=== PATIENT | female | born 1985 | race American Indian/Alaskan Native ===

== ENCOUNTER 2018-04-14 23:37 | Outpatient (CLI) | payer MEDICAID, OTHER ==
[2018-04-15] MEDS ORDERED: LACTATED RINGERS 1,000 ML IV ONE (00:22)
[2018-04-15] MEDS ORDERED: TYLENOL PO ONE (00:23)
[2018-04-15 00:42] VITALS: BP 127/83
[2018-04-15 00:53] LABS: Bacteria,Urine 1+ /HPF (Negative); Bilirubin,Urine NEG (Negative); Blood,Urine SM (Negative); Color,Urine Yellow (Yellow); Protein,Urine <15 mg/dL mg/dL (Negative); Urobilinogen,Urine < 2.0 mg/dL (<2.0)
[2018-04-15 01:13] LABS: Amphetamine Screen,Urine PRESUMPTIVE NEGATIVE; Benzodiazepines Screen,Urine PRESUMPTIVE NEGATIVE; Cannabinoid Screen,Urine PRESUMPTIVE NEGATIVE; Cocaine Screen,Urine PRESUMPTIVE NEGATIVE; Methadone Screen,Urine PRESUMPTIVE NEGATIVE; Opiate Screen,Urine PRESUMPTIVE NEGATIVE
--- NOTE | 2018-04-15 02:48 | Ultrasound Report ---
FINAL REPORT PROCEDURE: US OB > = 14 WEEKS FETUS TECHNIQUE: Real-time transabdominal sonography of the uterus, placenta, amniotic fluid, adnexa, and fetus was performed with image documentation. Measurements were obtained to determine age/size. M-mode Doppler was used to document heartbeat. CPT 28329 HISTORY: s/p fall no care COMPARISON: No prior studies are available for comparison. FINDINGS: ADDITIONAL GESTATION: None. GENERAL: IUP: Single living intrauterine . Position: Cephalic Placental position: Anterior, without previa. Amniotic fluid volume: Normal. MATERNAL: Uterus: Within normal limits. Cervical length: 4.6 cm. Internal Os: Closed. FETUS: Heart rate and rhythm: 135 beats per minute anatomic survey: There is limited evaluation of the skull and spine due to position. Anatomic survey is otherwise unremarkable. MEASUREMENTS: BPD: 7.9 centimeters correspond at 31 weeks and 6 days HC: 30.8 centimeters correspond at 34 weeks and 2 days AC: 31.3 centimeters correspond at 35 weeks and 1 day FL: 6.7 centimeters corresponding to 34 weeks and 4 days Mean Gestational Age (composite criteria): 34 weeks Ratio biometry: Normal. Estimated Weight: 2464 grams. Interval growth: Appropriate. Estimated Due Date (earliest scan): 05/27/2018 IMPRESSION: Single intrauterine gestation at 34 weeks. Estimated due date: 05/27/2018. There is limited evaluation of the skull and spine due to position. Anatomic survey is otherwise unremarkable. Normal amniotic fluid index. Placenta is anterior and grade 1 without previa.
--- NOTE | 2018-04-15 02:51 | Ultrasound Report ---
FINAL REPORT PROCEDURE: US OB BPP TECHNIQUE: Real-time transabdominal sonography of the uterus, placenta, amniotic fluid, adnexa, and fetus was performed with image documentation. Measurements were obtained to determine age/size. M-mode Doppler was used to document heartbeat. CPT 99265 HISTORY: s/p fall no care COMPARISON: No prior studies are available for comparison. FINDINGS: ADDITIONAL GESTATION: None. GENERAL: IUP: Single living intrauterine . Position: Cephalic Placental position: Anterior, without previa. Amniotic fluid volume: Normal. MATERNAL: Uterus: Within normal limits. Cervical length: 4.6 cm. Internal Os: Closed. FETUS: Heart rate and rhythm: 135 beats per minute anatomic survey: There is limited evaluation of the skull and spine due to position. Anatomic survey is otherwise unremarkable. THE BIOPHYSICAL PROFILE: BREATHING MOVEMENTS: 2. MOVEMENTS: 2. POSTERIOR AND TONE: 2. QUALITATIVE AMNIOTIC FLUID VOLUME: 2. TOTAL SCORE: 8/8. MEASUREMENTS: BPD: 7.9 centimeters correspond at 31 weeks and 6 days HC: 30.8 centimeters correspond at 34 weeks and 2 days AC: 31.3 centimeters correspond at 35 weeks and 1 day FL: 6.7 centimeters corresponding to 34 weeks and 4 days Mean Gestational Age (composite criteria): 34 weeks Ratio biometry: Normal. Estimated Weight: 2464 grams. Interval growth: Appropriate. Estimated Due Date (earliest scan): 05/27/2018 IMPRESSION: Single intrauterine gestation at 34 weeks. Estimated due date: 05/27/2018. There is limited evaluation of the skull and spine due to position. Anatomic survey is otherwise unremarkable. Normal amniotic fluid index. Placenta is anterior and grade 1 without previa. NORMAL BIOPHYSICAL PROFILE.
== END 2018-04-15 02:58 | disposition home or self-care (01) ==
LOC: TRG 23:37
PROVIDERS: ATTEND Obstetrics & Gynecology
DX: O9A.213 Injury, poisoning and certain other consequences of external causes complicating pregnancy, third trimester (principal); O99.333 Smoking (tobacco) complicating pregnancy, third trimester; W19.XXXA Unspecified fall, initial encounter; W22.8XXA Striking against or struck by other objects, initial encounter; Y93.89 Activity, other specified; Y92.89 Other specified places as the place of occurrence of the external cause; Y99.8 Other external cause status; Z3A.34 34 weeks gestation of pregnancy
CPT/HCPCS: 59025; 76805; 76819; 80307; 81001; 96360; J7120

== ENCOUNTER 2018-04-15 03:05 | Emergency (ER) | payer SELFPAY ==
[2018-04-15 03:14] VITALS: BP 144/74
[2018-04-15] MEDS ORDERED: TRIMOX PO ONE (03:29)
[2018-04-15] MEDS ORDERED: TYLENOL PO ONE (03:29)
--- NOTE | 2018-04-15 03:37 | Emergency Department Report ---
ED ENT HPI - General Chief complaint: Dental/Oral Stated complaint: TOOTHACHE Time Seen by Provider: 04/15/18 03:29 Source: patient Mode of arrival: Wheelchair Limitations: No Limitations - History of Present Illness Initial comments: pt is a 33 y/o aaf with hx of dental carries for past 2 yrs who presents for dental pain described as 5/10 aching pt is exacerbated by hot and cold stimuli, pt has not attempted otc pain reliever, pt has not seen dentist requesting referral to same. There is no facial or gum swelling no fever no chills no throat or ear pain MD complaint: tooth pain Onset/Timin -: days(s) Location: tooth # (27) Severity: moderate Severity scale (0 -10): 5 Quality: aching Consistency: constant Improves with: other (nothing tried ) Worsens with: eating, other (hot and cold stimuli ) Context- Dental: history of dental caries, poor dental care Associated Symptoms: toothache - Related Data Previous Rx's Medication Instructions Recorded Last Taken Type Acetaminophen [Tylenol Extra 1,000 mg PO TID PRN #30 tablet 04/15/18 Unknown Rx Strength] Amoxicillin 500 mg PO TID 10 Days #30 capsule 04/15/18 Unknown Rx Chlorhexidine Mouthwash [Peridex] 15 ml MM BID #1 bottle 04/15/18 Unknown Rx Allergies Allergy/AdvReac Type Severity Reaction Status Date / Time No Known Allergies Allergy Verified 04/15/18 00:22 ED Dental HPI - General Chief complaint: Dental/Oral Stated complaint: TOOTHACHE Time Seen by Provider: 04/15/18 03:29 Source: patient Mode of arrival: Wheelchair Limitations: No Limitations - Related Data Previous Rx's Medication Instructions Recorded Last Taken Type Acetaminophen [Tylenol Extra 1,000 mg PO TID PRN #30 tablet 04/15/18 Unknown Rx Strength] Amoxicillin 500 mg PO TID 10 Days #30 capsule 04/15/18 Unknown Rx Chlorhexidine Mouthwash [Peridex] 15 ml MM BID #1 bottle 04/15/18 Unknown Rx Allergies Allergy/AdvReac Type Severity Reaction Status Date / Time No Known Allergies Allergy Verified 04/15/18 00:22 ED Review of Systems ROS: Stated complaint: TOOTHACHE Other details as noted in HPI Constitutional: denies: chills, fever Eyes: denies: eye pain, eye discharge, vision change ENT: dental pain Respiratory: denies: cough, shortness of breath, wheezing Cardiovascular: denies: chest pain, palpitations Endocrine: no symptoms reported Gastrointestinal: denies: abdominal pain, nausea, diarrhea Genitourinary: denies: urgency, dysuria, discharge Musculoskeletal: denies: back pain, joint swelling, arthralgia Skin: denies: rash, lesions Neurological: denies: headache, weakness, paresthesias Psychiatric: denies: anxiety, depression Hematological/Lymphatic: denies: easy bleeding, easy bruising ED Past Medical Hx - Past Medical History Previous Medical History?: No Hx Hypertension: No Hx Diabetes: No Hx Deep Vein Thrombosis: No Hx Renal Disease: No Hx Sickle Cell Disease: No Hx Seizures: No Hx Asthma: No Hx HIV: No - Surgical History Past Surgical History?: No - Social History Smoking Status: Current Every Day Smoker Substance Use Type: None - Medications Home Medications: Home Medications Medication Instructions Recorded Confirmed Last Taken Type Acetaminophen [Tylenol Extra 1,000 mg PO TID PRN #30 tablet 04/15/18 Unknown Rx Strength] Amoxicillin 500 mg PO TID 10 Days #30 capsule 04/15/18 Unknown Rx Chlorhexidine Mouthwash [Peridex] 15 ml MM BID #1 bottle 04/15/18 Unknown Rx ED Physical Exam - General Limitations: No Limitations General appearance: alert, in no apparent distress - Head Head exam: Present: atraumatic, normocephalic - Eye Eye exam: Present: normal appearance, PERRL, EOMI Pupils: Present: normal accommodation - ENT ENT exam: Present: normal orophraynx, mucous membranes moist, TM's normal bilaterally, normal external ear exam - Expanded ENT Exam Expanded Ear exam: Present: normal external inspection Mouth exam: Present: tongue normal. Absent: trismus Teeth exam: Present: normal inspection, dental caries, dental tenderness # (28 mild gum erythema no focal abscess). Absent: gingival enlargement Throat exam: Positive: other (uvula midline no stridor no exudate no lesions airway is patent ). Negative: tonsillar erythema, tonsillomegaly, tonsillar exudate, R peritonsillar mass, L peritonsillar mass - Neck Neck exam: Present: normal inspection, full ROM. Absent: tenderness, meningismus, lymphadenopathy, thyromegaly - Respiratory Respiratory exam: Present: normal lung sounds bilaterally. Absent: respiratory distress, wheezes, stridor, chest wall tenderness - Cardiovascular Cardiovascular Exam: Present: regular rate, normal rhythm, normal heart sounds. Absent: systolic murmur, diastolic murmur, rubs, gallop - GI/Abdominal GI/Abdominal exam: Present: soft, normal bowel sounds. Absent: tenderness, bruit, hernia - Rectal Rectal exam: Present: deferred - Extremities Exam Extremities exam: Present: normal inspection, full ROM, normal capillary refill. Absent: tenderness - Back Exam Back exam: Present: normal inspection, full ROM. Absent: tenderness, CVA tenderness (R), CVA tenderness (L), muscle spasm, rash noted - Neurological Exam Neurological exam: Present: alert, oriented X3, CN II-XII intact, normal gait - Psychiatric Psychiatric exam: Present: normal affect, normal mood - Skin Skin exam: Present: warm, dry, intact, normal color. Absent: rash ED Course Vital Signs 04/15/18 03:08 Temperature 98.4 F Pulse Rate 75 Respiratory 18 Rate Blood Pressure 144/74 O2 Sat by Pulse 100 Oximetry ED Medical Decision Making - Medical Decision Making improved plan , treat for infected dental carries, with rx , amoxicillin, peridex, Tylenol, pt will follow up with [facility] dental service tomorrow, pt given referral to same. pt verbalized agreement and understanding of same. pt dc'd to home in stable condition at this time. Critical care attestation.: If time is entered above; I have spent that time in minutes in the direct care of this critically ill patient, excluding procedure time. ED Disposition Clinical Impression: Infected dental caries Disposition: DC-01 TO HOME OR SELFCARE Is pt being admited?: No Does the pt Need Aspirin: No Condition: Stable Instructions: Dental Caries (ED) Prescriptions: Acetaminophen [Tylenol Extra Strength] 1,000 mg PO TID PRN #30 tablet PRN Reason: pain Amoxicillin 500 mg PO TID 10 Days #30 capsule Chlorhexidine Mouthwash [Peridex] 15 ml MM BID #1 bottle Referrals: [facility] [Outside] - 3-5 Days Forms: Work/School Release Form(ED) Time of Disposition: 03:56
== END 2018-04-15 04:08 | disposition home or self-care (01) ==
LOC: ED 03:05
DX: K02.9 Dental caries, unspecified (principal); F17.200 Nicotine dependence, unspecified, uncomplicated
CPT/HCPCS: 99282

== ENCOUNTER 2018-05-06 23:30 | Inpatient (IN) | payer SELFPAY ==
[2018-05-07] MEDS ORDERED: PERCOCET 5/325 PO PRN (00:18)
[2018-05-07] MEDS: PITOCin/NS 20 UNIT/1000ML DRIP 20 UNITS/1,000 ML BAG IV SCH ×2 (01:05→01:08)
[2018-05-07] MEDS ORDERED: PITOCin/NS 20 UNIT/1000ML DRIP 20,000 MILLIUNITS/1,000 ML BAG IV ONE (04:45)
[2018-05-07] MEDS: IBUPROFEN PO PRN ×3 (10:04→20:07)
[2018-05-07] MEDS ORDERED: BENADRYL PO PRN ×2 (10:06→13:10)
--- NOTE | 2018-05-07 13:06 | History and Physical Report ---
History of Present Illness Date of examination: 05/07/18 Date of admission: 05/06/18 23:30 Chief complaint: labor History of present illness: 33y/o @ 37+1 weeks presents to labor and delivery after having a spontaneous vaginal delivery in her bathroom at home. The patient arrived via EMS. She states she delivered the placenta in the ambulance. The patient has not received care during this . Past History Past Medical History: other (thrombocytopenia) Past Surgical History: no surgical history Social history: single - Obstetrical History Expected Date of Delivery: 05/27/18 Actual Gestation: 37 Week(s) 1 Day(s) : 5 Para: 3 Hx # Term Pregnancies: 3 Number of Pregnancies: 0 Spontaneous Abortions: 1 Induced : 0 Number of Living Children: 3 Medications and Allergies Allergies Allergy/AdvReac Type Severity Reaction Status Date / Time No Known Allergies Allergy Verified 04/15/18 00:22 Home Medications Medication Instructions Recorded Confirmed Last Taken Type Acetaminophen [Tylenol Extra 1,000 mg PO TID PRN #30 tablet 04/15/18 Unknown Rx Strength] Amoxicillin 500 mg PO TID 10 Days #30 capsule 04/15/18 Unknown Rx Chlorhexidine Mouthwash [Peridex] 15 ml MM BID #1 bottle 04/15/18 Unknown Rx Active Meds: Active Medications Diphenhydramine HCl (Benadryl) 25 mg PO Q8H PRN PRN Reason: Itching Last Admin: 05/07/18 10:13 Dose: 25 mg Documented by: Oxytocin/Sodium Chloride (Pitocin/Ns 20 Unit/1000ml Drip) 20 units in 1,000 mls @ 0 mls/hr IV DIRECT BRADY Last Admin: 05/07/18 01:08 Dose: 125 mls/hr Documented by: Ibuprofen (Motrin) 800 mg PO Q8H PRN PRN Reason: Pain, Mild (1-3) Last Admin: 05/07/18 10:04 Dose: 800 mg Documented by: Oxycodone/Acetaminophen (Percocet 5/325) 2 tab PO Q6H PRN PRN Reason: Pain, Moderate (4-6) Last Admin: 05/07/18 02:25 Dose: 2 tab Documented by: Review of Systems All systems: negative Genitourinary: contractions - Vital Signs Vital signs: Vital Signs Pulse BP 70 126/94 05/06/18 23:57 05/06/18 23:57 Temp Pulse Resp BP Pulse Ox 97.2 F L 76 20 136/97 98 05/07/18 10:11 05/07/18 10:11 05/07/18 10:11 05/07/18 10:11 05/07/18 10:11 - Physical Exam Breasts: Positive: deferred Cardiovascular: Regular rate Lungs: Positive: Clear to auscultation Abdomen: Positive: normal appearance Results All other labs normal. Assessment and Plan - Patient Problems (1) No care in current Current Visit: Yes Status: Acute Plan to address problem: spontaneous vaginal delivery routine care (2) Vaginal delivery Current Visit: Yes Status: Acute
[2018-05-07] MEDS ORDERED: LANSINOH TP PRN (13:10)
[2018-05-07] MEDS ORDERED: TUCKS PAD TP PRN (13:10)
[2018-05-07] MEDS ORDERED: TYLENOL PO PRN (13:10)
[2018-05-07] MEDS ORDERED: DULCOLAX PR PRN (13:10)
[2018-05-07] MEDS ORDERED: PHENERGAN PO PRN (13:10)
[2018-05-07] MEDS ORDERED: PHENERGAN PR PRN (13:10)
[2018-05-07] MEDS ORDERED: ZOFRAN IV PRN (13:10)
[2018-05-07] MEDS ORDERED: MILK OF MAGNESIA PO PRN (13:10)
--- NOTE | 2018-05-07 13:10 | Procedure Note ---
OB Delivery Note - Delivery Date of Delivery: 05/06/18 Surgeon: HALLEY FERRO - Vaginal Delivery presentation: vertex Intrapartum events: no care Delivery monitor: none Route of delivery: Delivery placenta: spontaneous Episiotomy: none Delivery laceration: none Anesthesia: none Delivery comments: Patient had a of a liveborn male at home with a weight of 3.08kg. The delivery was attended by the patient's boyfriend. The placenta delivered spontaneously while in the ambulance. - A Gender: Male (weight 3.08kg)
[2018-05-07] MEDS ORDERED: SODIUM CHLORIDE FLUSH SYRINGE 10 ML IV NR (14:00)
[2018-05-07] MEDS: NORCO 5/325 PO PRN ×2 (14:25→20:07)
[2018-05-07] MEDS: IBUPROFEN PO SCH (20:00)
[2018-05-08 00:32] LABS: Hematocrit 27.4 % (30.3-42.9); Hemoglobin 9.6 gm/dl (10.1-14.3)
[2018-05-08] MEDS: IBUPROFEN PO SCH ×2 (06:10→12:00)
[2018-05-08] MEDS: IBUPROFEN PO PRN ×2 (12:00→18:15)
--- NOTE | 2018-05-08 12:16 | Progress Note ---
Assessment and Plan - Patient Problems (1) No care in current Current Visit: Yes Status: Acute Plan to address problem: patient doing well discharge home tomorrow (2) Vaginal delivery Current Visit: Yes Status: Acute Subjective - Subjective Date of service: 05/08/18 Interval history: Patient without any significant complaints. GBS status unknown. Tolerating regular diet Patient reports: appetite normal, voiding normally, pain well controlled Objective - Vital Signs Latest vital signs: Vital Signs Temp Pulse Resp BP BP Pulse Ox 05/08/18 07:10 18 05/08/18 06:10 18 05/08/18 00:00 98.6 F 64 16 119/78 05/07/18 21:07 18 05/07/18 20:07 18 05/07/18 13:05 97.5 F L 68 20 131/89 100 Intake and Output 05/07/18 05/08/18 05/08/18 22:59 06:59 14:59 Intake Total 480 660 Balance 480 660 Intake: Oral 240 360 Intake, Free Water 240 300 Other: Total, Intake Amount 240 360 # Voids Void 1 1 - Exam Uterus: Present: normal, firm - Labs Labs: Abnormal lab results 05/08/18 Range/Units 00:12 Hgb 9.6 L (10.1-14.3) gm/dl Hct 27.4 L (30.3-42.9) %
--- NOTE | 2018-05-08 12:18 | Discharge Summary ---
Providers - Providers Date of Admission: 05/06/18 23:30 Date of discharge: 05/09/18 Attending physician: HALLEY FERRO [facility] Reason for admission: active labor Delivery: Discharge diagnosis: IUP at term delivered [place] baby: male Hospital course: Patient delivered a liveborn male infant at home. She did not have care. unremarkable Condition at discharge: Good Disposition: DC-01 TO HOME OR SELFCARE - Discharge Diagnoses (1) No care in current Status: Acute (2) Vaginal delivery Status: Acute Plan - Discharge Medications Prescriptions: Ibuprofen [Motrin] 800 mg PO Q8HR PRN #60 tablet PRN Reason: Pain, Mild (1-3) HYDROcodone/APAP 5-325 [[place] 5/325] 1 each PO Q6HR PRN #20 tablet PRN Reason: Pain - Provider Discharge Summary Activity: no sex for 6 weeks, no heavy lifting 4 weeks, no strenuous exercise Diet: routine Instructions: routine Additional instructions: [] Smoking cessation referral if applicable(refer to patient education folder for contact #) [] Refer to [facility] Booklet Call your doctor immediately for: * Fever > 100.5 * Heavy vaginal bleeding ( >1 pad per hour) * Severe persistent headache * Shortness of breath * Reddened, hot, painful area to leg or breast * schedule visit in 4 weeks - Follow up plan
[2018-05-08 15:16] LABS: Hepatitis C Virus Antibody Non-Reactive (NonReactive)
[2018-05-09] MEDS: IBUPROFEN PO PRN ×2 (03:00→11:11)
[2018-05-09] MEDS: IBUPROFEN PO SCH (03:18)
[2018-05-09] MEDS: NORCO 5/325 PO PRN (12:32)
[2018-05-09] MEDS ORDERED: NORMODYNE PO ONE (15:00)
[2018-05-09 18:08] VITALS: BP 125/67
== END 2018-05-09 18:15 | disposition home or self-care (01) | DRG 776 ==
LOC: LD 23:30 → OB 05-07 02:21
PROVIDERS: ADMIT Obstetrics & Gynecology; ATTEND Obstetrics & Gynecology
DX: Z39.0 Encounter for care and examination of mother immediately after delivery (principal); Z79.899 Other long term (current) drug therapy
CPT/HCPCS: 36415; 85014; 85018; 86592; 86706; 86762; 86803; 86850; 86900; 86901; 87806; G0378; J2590

== ENCOUNTER 2019-12-13 15:16 | Emergency (ER) | payer MEDICAID ==
[2019-12-13 16:31] LABS: Basophils % (Auto) 0.2 % (0.0-1.8); Hematocrit 29.7 % (30.3-42.9); Hemoglobin 10.6 gm/dl (10.1-14.3); Lymphocytes # (Auto) 0.4 K/mm3 (1.2-5.4); Mean Corpuscular HGB Conc 36 % (30-34); Mean Corpuscular Volume 93 fl (79-97); Monocytes # (Auto) 0.3 K/mm3 (0.0-0.8); Monocytes % (Auto) 6.7 % (0.0-7.3); Red Blood Count 3.18 M/mm3 (3.65-5.03); Red Cell Distribution Width 14.5 % (13.2-15.2)
--- NOTE | 2019-12-13 16:33 | Ultrasound Report ---
ULTRASOUND OBSTETRIC COMPLETE INDICATION / CLINICAL INFORMATION: Pelvic pain after fall. Clinical Gestational Age (GA) in weeks.days: 26.1 TECHNIQUE: Transabdominal. COMPARISON: No relevant prior imaging study available. FINDINGS: NUMBER: Single PRESENTATION: cephalic PLACENTA: anterior and free of the os. MATERNAL ADNEXA: No significant abnormality. AMNIOTIC FLUID VOLUME: normal AMNIOTIC FLUID INDEX (BLAIRE) in cm (if measured): 18.5 ANATOMY: organs (including the bladder, stomach, kidneys, heart, umbilical cord, diaphragm, cord inserti on, spine and intracranial structures) are visualized and show no significant abnormality with the fo llowing exception(s): None. MEASUREMENTS: - Biparietal Diameter = 6.7 cm = 26.6 weeks.days - Head Circumference = 25.1 cm = 27.2 weeks.days - Abdominal Circumference = 21.9 cm = 26.2 weeks.days - Femur Length = 4.5 cm = 25.0 weeks.days - Estimated Weight (in grams, if calculated): 874 - Heart Rate (beats per minute): 149 ADDITIONAL FINDINGS: The cervical length measures 3.1 cm. PERCENTILE ESTIMATED WEIGHT (if calculated): 31 AVERAGE ULTRASOUND AGE (AUA) in weeks.days = 26.3 IMPRESSION: 1. Single intrauterine with AUA of 26.3 weeks.days 2. No significant sonographic abnormality. Signer Name: Stone Freedman MD Signed: 12/13/2019 4:29 PM Workstation Name: [id number]
[2019-12-13 16:34] LABS: Platelet Count 53 K/mm3 (140-440)
[2019-12-13 16:54] LABS: Alanine Aminotransferase 7 units/L (7-56); Albumin 3.9 g/dL (3.9-5); Blood Urea Nitrogen 9 mg/dL (7-17); Calcium 9.2 mg/dL (8.4-10.2); Hemolysis Index 6
[2019-12-13 17:00] LABS: BUN/Creatinine Ratio 13
--- NOTE | 2019-12-13 21:04 | Emergency Department Report ---
ED Abdominal Pain HPI - General Chief Complaint: Fall Stated Complaint: FALL RT SIDE ABD PAINS Time Seen by Provider: 12/13/19 20:49 Source: patient Mode of arrival: Ambulatory Limitations: No Limitations - History of Present Illness Initial Comments: Patient is a 34-year-old -Tajik female who is G6, P5, A 0 who presents for right lower abdominal pain status post ground-level fall today. Patient denies vaginal bleeding or contractions. States 3/10 low back pain and mild headache. pt denies dysuria , no hematuria, no fever or chills, There is no LOC, patient was immediately ambulatory there are no abrasions, lacerations no bleeding no deformity patient is alert oriented x3 amatory with steady gait with no acute distress. Patient advises she wants to make sure is okay pending [facility] intake and follow-up. MD Complaint: abdominal pain Onset/Timin -: hour(s) Location: RLQ Migration to: no migration Severity: moderate Severity scale (0 -10): 3 Quality: aching Consistency: intermittent Improves With: rest Worsens With: movement Associated Symptoms: denies other symptoms. denies: nausea, vomiting, diarrhea, fever, dysuria, melena - Related Data LMP (females 10-50): other (6 months) Previous Rx's Medication Instructions Recorded Last Taken Type Acetaminophen [Tylenol Extra 1,000 mg PO TID PRN #30 tablet 04/15/18 Unknown Rx Strength] Amoxicillin 500 mg PO TID 10 Days #30 capsule 04/15/18 Unknown Rx Chlorhexidine Mouthwash [Peridex] 15 ml MM BID #1 bottle 04/15/18 Unknown Rx HYDROcodone/APAP 5-325 [[place] 1 each PO Q6HR PRN #20 tablet 05/08/18 Unknown Rx 5/325] Ibuprofen [Motrin] 800 mg PO Q8HR PRN #60 tablet 05/08/18 Unknown Rx Allergies Allergy/AdvReac Type Severity Reaction Status Date / Time No Known Allergies Allergy Verified 04/15/18 00:22 ED Review of Systems ROS: Stated complaint: FALL RT SIDE ABD PAINS Other details as noted in HPI Constitutional: no symptoms reported Eyes: denies: eye pain, eye discharge, vision change ENT: denies: ear pain, throat pain Respiratory: denies: cough, shortness of breath, wheezing Cardiovascular: denies: chest pain, palpitations Endocrine: no symptoms reported Gastrointestinal: abdominal pain (abd wall pain ). denies: nausea, vomiting, diarrhea, melena Genitourinary: denies: urgency, dysuria, discharge Musculoskeletal: denies: back pain, joint swelling, arthralgia Skin: denies: rash, lesions Neurological: denies: headache, weakness, paresthesias Psychiatric: denies: anxiety, depression Hematological/Lymphatic: denies: easy bleeding, easy bruising ED Past Medical Hx - Past Medical History Hx Hypertension: No Hx Congestive Heart Failure: No Hx Diabetes: No Hx Deep Vein Thrombosis: No Hx Renal Disease: No Hx Sickle Cell Disease: No Hx Seizures: No Hx Asthma: No Hx COPD: No Hx HIV: No - Surgical History Past Surgical History?: No - Social History Smoking Status: Current Every Day Smoker - Medications Home Medications: Home Medications Medication Instructions Recorded Confirmed Last Taken Type Acetaminophen [Tylenol Extra 1,000 mg PO TID PRN #30 tablet 04/15/18 05/07/18 Unknown Rx Strength] Amoxicillin 500 mg PO TID 10 Days #30 capsule 04/15/18 05/07/18 Unknown Rx Chlorhexidine Mouthwash [Peridex] 15 ml MM BID #1 bottle 04/15/18 05/07/18 Unknown Rx HYDROcodone/APAP 5-325 [[place] 1 each PO Q6HR PRN #20 tablet 05/08/18 Unknown Rx 5/325] Ibuprofen [Motrin] 800 mg PO Q8HR PRN #60 tablet 05/08/18 Unknown Rx ED Physical Exam - General Limitations: No Limitations General appearance: alert, in no apparent distress - Head Head exam: Present: atraumatic, normocephalic - Eye Eye exam: Present: normal appearance, EOMI Pupils: Present: normal accommodation - ENT ENT exam: Present: normal exam, mucous membranes moist - Neck Neck exam: Present: normal inspection, full ROM. Absent: tenderness, meningismus - Expanded Neck Exam Expanded Neck exam: Absent: tenderness, midline deformity, anterior neck swelling, thyroid mass, tracheal deviation - Respiratory Respiratory exam: Present: normal lung sounds bilaterally. Absent: respiratory distress, wheezes, stridor, chest wall tenderness - Cardiovascular Cardiovascular Exam: Present: regular rate, normal heart sounds - GI/Abdominal GI/Abdominal exam: Present: soft, tenderness (right latera abd wall tenderness to deep palpation ), normal bowel sounds. Absent: distended, guarding, rebound, rigid, bruit, hernia - Expanded GI/Abdominal Exam Expanded GI/Abdominal exam: Absent: psoas sign, obturator sign, heel tap sign, Cummins's sign, Rovsing's sign, tenderness at Mcburney's Point - Rectal Rectal exam: Present: deferred - Extremities Exam Extremities exam: Present: normal inspection, full ROM, normal capillary refill. Absent: tenderness - Back Exam Back exam: Present: normal inspection, full ROM. Absent: tenderness, CVA tenderness (R), CVA tenderness (L), vertebral tenderness - Neurological Exam Neurological exam: Present: alert, oriented X3, CN II-XII intact, normal gait, reflexes normal. Absent: motor sensory deficit - Expanded Neurological Exam Expanded Patient oriented to: Present: person, place, time Speech: Present: fluid speech Motor strength exam: RUE: 5, LUE: 5, RLE: 5, LLE: 5 Best Eye Response (Jina): (4) open spontaneously Best Motor Response (Jina): (6) obeys commands Best Verbal Response (Jina): (5) oriented Jina Total: 15 - Psychiatric Psychiatric exam: Present: normal affect, normal mood - Skin Skin exam: Present: warm, dry, intact, normal color. Absent: rash ED Course Vital Signs 12/13/19 15:25 Temperature 98.0 F Pulse Rate 81 Respiratory 18 Rate Blood Pressure 128/86 O2 Sat by Pulse 99 Oximetry ED Medical Decision Making - Lab Data Result diagrams: 12/13/19 15:49 12/13/19 15:49 Labs 12/13/19 12/13/19 12/13/19 15:49 15:49 15:49 WBC 3.8 L RBC 3.18 L Hgb 10.6 Hct 29.7 L MCV 93 MCH 33 H MCHC 36 H RDW 14.5 Plt Count 53 L Lymph % (Auto) 11.0 L Carl[place] % (Auto) 6.7 Eos % (Auto) 1.0 Baso % (Auto) 0.2 Lymph # (Auto) 0.4 L [place] # (Auto) 0.3 Eos # (Auto) 0.0 Baso # (Auto) 0.0 Seg Neutrophils % 81.1 H Seg Neutrophils # 3.1 Sodium 136 L Potassium 4.3 Chloride 101.6 Carbon Dioxide 23 Anion Gap 16 BUN 9 Creatinine 0.7 Estimated GFR > 60 BUN/Creatinine Ratio 13 Glucose 82 Calcium 9.2 Total Bilirubin 0.40 AST 11 ALT 7 Alkaline Phosphatase 67 Total Protein 7.6 Albumin 3.9 Albumin/Globulin Ratio 1.1 HCG, Quant 10372 H - Radiology Data Radiology results: report reviewed, image reviewed Findings Reporting MD: Stone Freedman Dictation Time: December 13, 2019 15:29 Plant Mechanic: Not available Income Tax Expert Date: ULTRASOUND OBSTETRIC COMPLETE INDICATION / CLINICAL INFORMATION: Pelvic pain after fall. Clinical Gestational Age (GA) in weeks.days: 26.1 TECHNIQUE: Transabdominal. COMPARISON: No relevant prior imaging study available. FINDINGS: NUMBER: Single PRESENTATION: cephalic PLACENTA: anterior and free of the os. MATERNAL ADNEXA: No significant abnormality. AMNIOTIC FLUID VOLUME: normal AMNIOTIC FLUID INDEX (BLAIRE) in cm (if measured): 18.5 ANATOMY: organs (including the bladder, stomach, kidneys, heart, umbilical cord, diaphragm, cord insertion, spine and intracranial structures) are visualized and show no significant abnormality with the following exception(s): None. MEASUREMENTS: - Biparietal Diameter = 6.7 cm = 26.6 weeks.days - Head Circumference = 25.1 cm = 27.2 weeks.days - Abdominal Circumference = 21.9 cm = 26.2 weeks.days - Femur Length = 4.5 cm = 25.0 weeks.days - Estimated Weight (in grams, if calculated): 874 - Heart Rate (beats per minute): 149 ADDITIONAL FINDINGS: The cervical length measures 3.1 cm. PERCENTILE ESTIMATED WEIGHT (if calculated): 31 AVERAGE ULTRASOUND AGE (AUA) in weeks.days = 26.3 IMPRESSION: 1. Single intrauterine with AUA of 26.3 weeks.days 2. No significant sonographic abnormality. Signer Name: Stone Freedman MD Signed: 12/13/2019 3:29 PM Workstation Name: [id number] - Medical Decision Making OB ultrasound greater than 14 weeks: Single IUP 26 weeks 3 days heart rate 149 bpm, no abnormalities noted, there is no vaginal bleeding, no neuro symptoms, pt declines tylenol. plan follow up with OBGYN as scheduled, return to emergency if symptoms develop. Pt verbalized agreement and understanding of discharge plan. pt dc'd to home in stable condition Critical care attestation.: If time is entered above; I have spent that time in minutes in the direct care of this critically ill patient, excluding procedure time. ED Disposition Clinical Impression: Qualifiers: Weeks of gestation: 26 weeks Qualified Code(s): Z3A.26 - 26 weeks gestation of Fall Qualifiers: Encounter type: initial encounter Qualified Code(s): W19.XXXA - Unspecified fall, initial encounter Disposition: DC-01 TO HOME OR SELFCARE Is pt being admited?: No Does the pt Need Aspirin: No Condition: Stable Instructions: Fall Prevention (ED), Abdominal Pain in (ED) Additional Instructions: 26 weeks and 3 days, intact , follow up with obgyn as directed, return to emergency if you develop symptoms. Referrals: NIXON NATHAN MD [Primary Care Provider] - 3-5 Days HALLEY FERRO MD [Staff Physician] - 3-5 Days Forms: Work/School Release Form(ED) Time of Disposition: 21:28
[2019-12-13 21:17] VITALS: BP 129/67
== END 2019-12-13 21:49 | disposition home or self-care (01) ==
LOC: ED 15:16
DX: O26.892 Other specified pregnancy related conditions, second trimester (principal); R10.31 Right lower quadrant pain; O99.332 Smoking (tobacco) complicating pregnancy, second trimester; Z79.2 Long term (current) use of antibiotics; Z79.1 Long term (current) use of non-steroidal anti-inflammatories (NSAID); Z3A.23 23 weeks gestation of pregnancy; Z79.899 Other long term (current) drug therapy; W18.30XA Fall on same level, unspecified, initial encounter; Y93.89 Activity, other specified; Y92.89 Other specified places as the place of occurrence of the external cause; Y99.8 Other external cause status
CPT/HCPCS: 36415; 76805; 80053; 84702; 85025; 99283

== ENCOUNTER 2020-03-19 06:22 | Inpatient (IN) | payer MEDICAID ==
[2020-03-19] MEDS ORDERED: LACTATED RINGERS 1,000 ML IV ONE (06:53)
[2020-03-19 07:55] LABS: Hematocrit 29.6 % (30.3-42.9); Hemoglobin 10.3 gm/dl (10.1-14.3); Mean Corpuscular HGB Conc 35 % (30-34); Mean Corpuscular Volume 94 fl (79-97); Red Blood Count 3.15 M/mm3 (3.65-5.03); Red Cell Distribution Width 14.2 % (13.2-15.2)
[2020-03-19 07:56] LABS: Platelet Count 43 K/mm3 (140-440)
[2020-03-19] MEDS ORDERED: ePHEDrine SULFATE 50 MG/1 ML INJ IV PRN (08:12)
[2020-03-19] MEDS ORDERED: TERBUTALINE 1 MG/1 ML INJ SUB-Q PRN (08:12)
[2020-03-19] MEDS ORDERED: ACETAMINOPHEN 325 MG TAB PO PRN (08:12)
[2020-03-19] MEDS ORDERED: BUTORPHANOL 2 MG/1 ML INJ IV PRN ×2 (08:12→13:00)
[2020-03-19] MEDS ORDERED: LIDOCAINE (2%) 20 MG/1 ML VIAL 20 ML MDV INFILTRATI ONE (08:12)
[2020-03-19] MEDS ORDERED: LACTATED RINGERS 1,000 ML IV SCH (08:15)
[2020-03-19] MEDS ORDERED: OXYTOCIN DRIP 30 UNITS/500 ML BAG IV SCH ×2 (09:00)
[2020-03-19] MEDS ORDERED: LACTATED RINGERS 1000 ML IV SOLN IV SCH (09:00)
[2020-03-19] MEDS ORDERED: AMPICILLIN/NS 2 GM/100 ML 2 GM/100 ML BAG IV SCH (09:00)
[2020-03-19 10:13] LABS: Hematocrit 29.5 % (30.3-42.9); Mean Corpuscular HGB Conc 34 % (30-34); Mean Corpuscular Volume 94 fl (79-97); Red Blood Count 3.14 M/mm3 (3.65-5.03)
[2020-03-19 10:15] LABS: Platelet Count 42 K/mm3 (140-440)
[2020-03-19] MEDS ORDERED: miSOPROStol 200 MCG TAB ONE (11:31)
[2020-03-19] MEDS ORDERED: METHYLERGONOVINE MALEATE 0.2 MG/ML VIAL IM ONE (11:32)
[2020-03-19] MEDS ORDERED: AMPICILLIN/NS 1 GM/50 ML 1 GM/50 ML BAG IV SCH (13:00)
[2020-03-19] MEDS: BUTORPHANOL 2 MG/1 ML INJ IV PRN ×2 (13:54→16:49)
[2020-03-19] MEDS ORDERED: CARBOPROST TROMETHAMINE 250 MCG/1 ML INJ IM PRN (16:14)
[2020-03-19] MEDS ORDERED: miSOPROStol 200 MCG TAB PR PRN (16:14)
[2020-03-19 16:15] LABS: Hematocrit 30.7 % (30.3-42.9); Hemoglobin 10.3 gm/dl (10.1-14.3); Mean Corpuscular HGB Conc 34 % (30-34); Mean Corpuscular Volume 95 fl (79-97); Red Blood Count 3.22 M/mm3 (3.65-5.03); Red Cell Distribution Width 14.2 % (13.2-15.2)
[2020-03-19 16:17] LABS: Platelet Count 44 K/mm3 (140-440)
[2020-03-19 16:38] LABS: Uric Acid 5.7 mg/dL (3.5-7.6)
[2020-03-19] MEDS ORDERED: MAGNESIUM HYDROXIDE (MOM) ORAL LIQD UDC PO PRN (16:55)
[2020-03-19] MEDS ORDERED: LANOLIN/ZINC/DIMETHICONE (LANSINOH) 7 GM TP PRN (16:55)
[2020-03-19] MEDS ORDERED: PROMETHAZINE 25 MG TAB PO PRN (16:55)
[2020-03-19] MEDS ORDERED: PROMETHAZINE 25 MG RECT SUPP PR PRN (16:55)
[2020-03-19] MEDS ORDERED: WITCH HAZEL/ GLYCERIN PAD TP PRN (16:55)
[2020-03-19] MEDS ORDERED: diphenhydrAMINE 25 MG CAP PO PRN (16:55)
[2020-03-19] MEDS ORDERED: ONDANSETRON 4 MG/2 ML INJ IV PRN (16:55)
[2020-03-19] MEDS ORDERED: IBUPROFEN 600 MG TAB PO SCH (17:00)
--- NOTE | 2020-03-19 17:02 | Procedure Note ---
OB Delivery Note - Delivery Date of Delivery: 03/19/20 Surgeon: MAILE DEGROOT ([facility]) Estimated blood loss: 200cc - Vaginal Delivery presentation: vertex Delivery position: OA Intrapartum events: PROM->1hr before delivery, gestational hypertension, mult. late decelerations Delivery augmentation: pitocin Delivery monitor: external FHT, external uterine Route of delivery: Delivery placenta: spontaneous Delivery cord: 3 umbilical vessels Episiotomy: none Delivery laceration: none Delivery comments: Excellent maternal effort progressed to of viable male over intact perineum. Head delivered OA, restituted ROT, shoulders followed easily. Infant to maternal abdomen, apgars 8/9. Pitocin infusing IV. Placenta delivered spontaneously and intact, 3VC. Fundus firm, EBL 200cc. No lacerations noted. Cytotec 600mcg sublingual administered. - A at 1 minute: 8 at 5 minutes: 9 Gender: Male
[2020-03-19] MEDS ORDERED: MINERAL OIL 30 ML ORAL LIQD PO PRN (22:00)
[2020-03-19] MEDS: HYDROcodone/ACETAMINOPHEN 5-325 MG TAB PO PRN (22:30)
[2020-03-20 01:17] LABS: Bilirubin,Urine NEG (Negative); Blood,Urine LG (Negative); Color,Urine Red (Yellow); Mucus,Urine FEW /HPF; Urobilinogen,Urine < 2.0 mg/dL (<2.0)
[2020-03-20 01:25] LABS: Amphetamine Screen,Urine PRESUMPTIVE NEGATIVE; Benzodiazepines Screen,Urine PRESUMPTIVE NEGATIVE; Cannabinoid Screen,Urine PRESUMPTIVE NEGATIVE; Cocaine Screen,Urine PRESUMPTIVE NEGATIVE; Methadone Screen,Urine PRESUMPTIVE NEGATIVE; Opiate Screen,Urine PRESUMPTIVE NEGATIVE
[2020-03-20] MEDS: HYDROcodone/ACETAMINOPHEN 5-325 MG TAB PO PRN ×4 (03:30→22:13)
[2020-03-20 06:16] LABS: Hematocrit 24.9 % (30.3-42.9); Hemoglobin 8.5 gm/dl (10.1-14.3)
--- NOTE | 2020-03-20 07:10 | History and Physical Report ---
History of Present Illness Date of examination: 03/19/20 Date of admission: 03/19/20 12:26 Chief complaint: contractions History of present illness: 35y/o @ 39+4 weeks presents in active labor with advanced cervical dilation. The patient has had limited care. Her GBS status is unknown. also complicated by idiopathopic thrombocytopenia. She denies any bleeding episodes. 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 Social history: single - Obstetrical History Expected Date of Delivery: 03/22/20 Actual Gestation: 39 Week(s) 5 Day(s) : 7 Para: 5 Hx # Term Pregnancies: 5 Number of Pregnancies: 0 Spontaneous Abortions: 1 Induced : 0 Number of Living Children: 5 Medications and Allergies Allergies Allergy/AdvReac Type Severity Reaction Status Date / Time ibuprofen Allergy Mild Hives Verified 03/19/20 06:47 Home Medications Medication Instructions Recorded Confirmed Last Taken Type Acetaminophen [Tylenol Extra 1,000 mg PO TID PRN #30 tablet 04/15/18 03/19/20 01/24/20 Rx Strength] Amoxicillin 500 mg PO TID 10 Days #30 capsule 04/15/18 03/19/20 12/28/19 Rx Chlorhexidine Mouthwash [Peridex] 15 ml MM BID #1 bottle 04/15/18 03/19/20 01/24/20 Rx HYDROcodone/APAP 5-325 [[place] 1 each PO Q6HR PRN #20 tablet 05/08/18 03/19/20 01/24/20 Rx 5/325] Ibuprofen [Motrin] 800 mg PO Q8HR PRN #60 tablet 05/08/18 03/19/20 01/04/20 Rx Aspirin 81 mg PO DAILY 03/19/20 03/19/20 03/18/20 09:00 History 148/Iron/Folate 6/Dha 1 mg PO DAILY 03/19/20 03/19/20 03/18/20 09:00 History Ferrous Sulfate [Iron 325 MG] 325 mg PO TID #90 tablet 03/20/20 Unknown Rx Ibuprofen [Motrin] 800 mg PO Q8HR PRN #30 tablet 03/20/20 Unknown Rx Active Meds: Active Medications Hydrocodone Bitart/Acetaminophen (Hydrocodone/Acetaminophen 5-325 Mg Tab) 1 each PO Q6H PRN PRN Reason: Pain, Moderate (4-6) Last Admin: 03/20/20 03:30 Dose: 1 each Documented by: Bisacodyl (Bisacodyl 10 Mg Rect Supp) 10 mg ND BID PRN PRN Reason: Constipation Diphenhydramine HCl (Diphenhydramine 25 Mg Cap) 25 mg PO Q6H PRN PRN Reason: Itching Magnesium Hydroxide (Magnesium Hydroxide (Mom) Oral Liqd Udc) 30 ml PO HS PRN PRN Reason: Constipation Multi-Ingredient Ointment (Lanolin/Zinc/Dimethicone (Lansinoh) 7 Gm) 1 applic TP PRN PRN PRN Reason: Sore Nipples Ondansetron HCl (Ondansetron 4 Mg/2 Ml Inj) 4 mg IV Q8H PRN PRN Reason: Nausea And Vomiting Promethazine HCl (Promethazine 25 Mg Rect Supp) 25 mg ND Q6H PRN PRN Reason: Nausea And Vomiting Promethazine HCl (Promethazine 25 Mg Tab) 25 mg PO Q6H PRN PRN Reason: Nausea And Vomiting Sodium Chloride (Sodium Chloride 0.9% 10 Ml Flush Syringe) 10 ml IV PRN BRADY Witch Bernie/Glycerin (Witch Bernie/ Glycerin Pad) 1 each TP PRN PRN PRN Reason: Hemorrhoid/cleansing/soothing Review of Systems Genitourinary: pelvic pain, contractions - Vital Signs Vital signs: Vital Signs Temp Pulse Resp BP Pulse Ox 98.8 F 80 20 136/95 100 03/19/20 06:40 03/19/20 06:40 03/19/20 06:40 03/19/20 06:40 03/19/20 06:40 Temp Pulse Resp BP Pulse Ox 97.6 F 63 18 131/82 94 03/20/20 05:26 03/20/20 05:26 03/20/20 05:26 03/20/20 05:26 03/20/20 05:26 - Physical Exam Breasts: Positive: deferred Cardiovascular: Regular rate Lungs: Positive: Clear to auscultation Abdomen: Positive: normal appearance - Obstetrical Cervical Dilatation: 4 Results Result Diagrams: 03/20/20 05:47 03/19/20 15:48 Abnormal lab results 0103/19/20 03/19/20 Range/Units 07:30 09:31 15:48 WBC 2.9 L 3.1 L 2.9 L (4.5-11.0) K/mm3 RBC 3.15 L 3.14 L 3.22 L (3.65-5.03) M/mm3 Hgb 10.0 L (10.1-14.3) gm/dl Hct 29.6 L 29.5 L (30.3-42.9) % MCH 33 H (28-32) pg MCHC 35 H (30-34) % Plt Count 43 L 42 L 44 L (140-440) K/mm3 03/20/20 Range/Units 05:47 WBC (4.5-11.0) K/mm3 RBC (3.65-5.03) M/mm3 Hgb 8.5 L (10.1-14.3) gm/dl Hct 24.9 L (30.3-42.9) % MCH (28-32) pg MCHC (30-34) % Plt Count (140-440) K/mm3 All other labs normal. Assessment and Plan - Patient Problems (1) Active labor at term Current Visit: Yes Status: Acute Plan to address problem: admit to L&D anticipate vaginal delivery (2) Chronic iron deficiency anemia Current Visit: Yes Status: Acute (3) No care in current Current Visit: No Status: Acute
[2020-03-20] MEDS: FERROUS SULFATE 325 MG TAB PO SCH ×2 (09:52→22:13)
[2020-03-20] MEDS ORDERED: BENZOCAINE 13 ML BOTTLE (ORAJEL) MM PRN (13:16)
--- NOTE | 2020-03-20 13:20 | Progress Note ---
Assessment and Plan A:PPD1 s/p at term. Insufficent care GHTN Chronic Iron deficiency Thrombocytopenia GBS unknown P:Continue with routine care with anticipated discharge tomorrow. Pt to receive oral iron therapy and depo injection prior to discharge. Subjective - Subjective Date of service: 03/20/20 Principal diagnosis: At term Interval history: PPD1 s/p at term. Patient reports that she is feeling well and reports adequate pain control. Patient reports: appetite normal, voiding normally, pain well controlled, ambulating normally : doing well Objective - Vital Signs Latest vital signs: Vital Signs Temp Pulse Resp BP BP Pulse Ox 03/20/20 09:52 18 03/20/20 07:53 98.0 F 72 18 141/97 98 03/20/20 05:26 97.6 F 63 18 131/82 94 03/20/20 03:30 18 03/20/20 00:29 97.7 F 63 20 135/74 97 03/19/20 22:30 18 03/19/20 20:30 99.0 F 73 18 147/90 98 03/19/20 19:38 80 140/80 03/19/20 19:37 91 H 145/89 03/19/20 19:35 87 03/19/20 19:00 98 F 69 16 89 03/19/20 18:08 85 03/19/20 18:00 76 94 03/19/20 17:58 88 98 03/19/20 17:54 97 H 93 03/19/20 17:53 97 H 96 03/19/20 17:48 90 97 03/19/20 17:47 91 H 93 03/19/20 17:43 83 95 03/19/20 17:41 83 94 03/19/20 17:38 79 97 03/19/20 17:33 74 99 03/19/20 17:30 98.0 F 18 03/19/20 17:28 84 95 03/19/20 17:27 81 94 03/19/20 17:23 51 L 73 L 03/19/20 17:21 89 88 03/19/20 17:17 80 95 03/19/20 17:13 77 153/69 03/19/20 17:12 85 88 03/19/20 17:09 72 183/78 03/19/20 17:07 75 98 03/19/20 17:05 97.7 F 18 03/19/20 17:02 70 100 03/19/20 16:59 71 87 03/19/20 16:57 84 97 03/19/20 16:52 68 100 03/19/20 16:50 64 153/87 03/19/20 16:49 18 03/19/20 16:47 69 98 03/19/20 16:42 68 98 03/19/20 16:37 92 H 98 03/19/20 16:32 77 143/86 100 03/19/20 16:27 77 100 03/19/20 16:22 80 100 03/19/20 16:17 90 100 03/19/20 16:12 105 H 100 03/19/20 16:07 65 100 03/19/20 16:04 70 192/74 03/19/20 16:02 71 100 03/19/20 15:57 83 100 03/19/20 15:53 68 91 03/19/20 15:52 59 L 97 03/19/20 15:47 59 L 98 03/19/20 15:42 62 98 03/19/20 15:37 66 96 03/19/20 15:32 82 140/84 98 03/19/20 15:27 55 L 96 03/19/20 15:22 59 L 97 03/19/20 15:17 59 L 98 03/19/20 15:12 71 98 03/19/20 15:09 68 94 03/19/20 15:07 61 96 03/19/20 15:03 67 168/93 0 L 03/19/20 15:02 60 94 03/19/20 14:58 72 94 03/19/20 14:57 60 95 03/19/20 14:54 18 03/19/20 14:52 64 97 03/19/20 14:47 69 99 03/19/20 14:42 73 95 03/19/20 14:37 69 95 03/19/20 14:32 69 177/83 95 03/19/20 14:27 91 H 98 03/19/20 14:22 66 100 03/19/20 14:17 78 100 03/19/20 14:16 66 165/85 03/19/20 14:14 73 93 03/19/20 14:12 72 93 03/19/20 14:09 85 94 03/19/20 14:07 81 98 03/19/20 14:02 79 164/102 96 03/19/20 13:57 64 99 03/19/20 13:54 18 03/19/20 13:52 64 99 03/19/20 13:50 98.1 F 18 03/19/20 13:47 68 99 03/19/20 13:42 73 99 03/19/20 13:37 83 100 03/19/20 13:32 72 140/87 03/19/20 13:30 74 100 03/19/20 13:25 76 100 03/19/20 13:20 82 99 03/19/20 13:15 77 100 Intake and Output 03/19/20 03/20/20 03/20/20 23:59 07:59 15:59 Intake Total 200 580 Output Total 900 400 Balance -700 180 Intake: Oral 200 580 Output: Urine 900 400 Void 900 400 Other: Total, Intake Amount 200 240 Total, Output Amount 400 100 Estimated Blood Loss 200 - Exam Uterus: Present: firm, fundal height below umbilicus - Labs Labs: Abnormal lab results 03/19/20 03/20/20 Range/Units 15:48 05:47 WBC 2.9 L (4.5-11.0) K/mm3 RBC 3.22 L (3.65-5.03) M/mm3 Hgb 8.5 L (10.1-14.3) gm/dl Hct 24.9 L (30.3-42.9) % Plt Count 44 L (140-440) K/mm3
--- NOTE | 2020-03-20 13:30 | Discharge Summary ---
Providers - Providers Date of Admission: 03/19/20 12:26 Date of discharge: 03/21/20 Attending physician: SILVIO ALFREDO 03/19/20 Consult to Case Management [CONS] Routine Services Needed at Discharge: Public Health Program Manager Notified:: na Comment:: Limited care Primary care physician: SILVIO ALFREDO Hospitalization Reason for admission: active labor Delivery: Episiotomy: none Laceration: none Other procedures: none complications: none Discharge diagnosis: IUP at term delivered baby: male Condition at discharge: Good Disposition: DC-01 TO HOME OR SELFCARE Plan - Discharge Medications Prescriptions: Ferrous Sulfate [Iron 325 MG] 325 mg PO TID #90 tablet - Provider Discharge Summary Activity: no sex for 6 weeks, no heavy lifting 4 weeks, no strenuous exercise Diet: routine Instructions: routine Additional instructions: [] Smoking cessation referral if applicable(refer to patient education folder for contact #) [] Refer to [facility]'s [facility] Booklet Call your doctor immediately for: * Fever > 100.5 * Heavy vaginal bleeding ( >1 pad per hour) * Severe persistent headache * Shortness of breath * Reddened, hot, painful area to leg or breast * Drainage or odor from incision. * Keep incision clean and dry at all times and follow doctor's instructions regarding bathing/showering - Follow up plan Follow up: KAREN CIFUENTES WHITESMITH [Advanced Practice Nurse] - 7 Days
[2020-03-20] MEDS: NIFEdipine XL 30 MG TAB PO SCH (18:36)
[2020-03-21] MEDS: HYDROcodone/ACETAMINOPHEN 5-325 MG TAB PO PRN (04:05)
[2020-03-21] MEDS ORDERED: medroxyPROGESTERone ACETATE 150 MG/ML SYRINGE IM NR (07:30)
[2020-03-21] MEDS ORDERED: ACETAMINOPHEN 500 MG TAB PO ONE (09:00)
[2020-03-21] MEDS: NIFEdipine XL 30 MG TAB PO SCH (10:21)
[2020-03-21] MEDS: FERROUS SULFATE 325 MG TAB PO SCH (10:22)
[2020-03-21] MEDS ORDERED: CALCIUM GLUCONATE 1000 MG/10 ML INJ IV PRN (11:28)
[2020-03-21] MEDS ORDERED: LACTATED RINGERS 1,000 ML IV SCH (11:30)
[2020-03-21] MEDS ORDERED: hydrALAZINE 20 MG/1 ML INJ IV PRN (11:30)
[2020-03-21] MEDS ORDERED: BUTALB/ACETAMINOPHEN/CAFFEINE TAB PO PRN (11:43)
[2020-03-21] MEDS ORDERED: CALCIUM GLUCONATE 1,000 MG in SODIUM CHLORIDE 0.9% 100 ML IV ONE (12:00)
[2020-03-21] MEDS ORDERED: MAGNESIUM SULFATE 4 GM/100 ML BAG IV ONE (12:00)
[2020-03-21] MEDS ORDERED: MAGNESIUM SULFATE 40GM/1000ML 40 GM/1,000 ML BAG IV SCH (12:00)
[2020-03-21 14:24] VITALS: BP 121/80
== END 2020-03-21 17:43 | disposition home or self-care (01) | DRG 775 ==
LOC: TRG 06:22 → APU 06:30 → LD 08:06 → TRG 12:17 → LD 12:26 → OB 21:03
PROVIDERS: ADMIT Obstetrics & Gynecology; ATTEND Obstetrics & Gynecology
PROC: 10E0XZZ Delivery of Products of Conception, External Approach (ICD-10-PCS; principal; 2020-03-19)
DX: O42.02 Full-term premature rupture of membranes, onset of labor within 24 hours of rupture (principal); O13.4 Gestational [pregnancy-induced] hypertension without significant proteinuria, complicating childbirth; O99.02 Anemia complicating childbirth; O99.12 Other diseases of the blood and blood-forming organs and certain disorders involving the immune mechanism complicating childbirth; D69.3 Immune thrombocytopenic purpura; D64.9 Anemia, unspecified; Z3A.39 39 weeks gestation of pregnancy; Z20.822 Contact with and (suspected) exposure to COVID-19; Z37.0 Single live birth; Z79.899 Other long term (current) drug therapy; Z79.82 Long term (current) use of aspirin; Z88.6 Allergy status to analgesic agent
CPT/HCPCS: 36415; 80307; 81001; 82565; 83615; 84450; 84550; 85014; 85018; 85027; 86592; 86850; 86900; 86901; G0378; J0290; J0595; J2590; J7120; U0003

== ENCOUNTER 2020-05-02 10:56 | Day surgery (SDC) | payer MEDICAID ==
--- NOTE | 2020-05-02 09:35 | Short Stay Summary ---
Short Stay Documentation Date of service: 05/02/20 Narrative H&P: 35-year-old -0-1-6 with undesired fertility. The patient is aware of other contraceptive options and has elected to undergo permanent sterilization. - History Principal diagnosis: Unwanted fertility Past Medical History: No medical history Past Surgical History: No surgical history Social history: single, smoking - Allergies and Medications Current Medications: Allergies ibuprofen Allergy (Mild, Verified 03/19/20 06:47) Hives diphenhydramine [From Benadryl] Allergy (Verified 04/26/20 14:51) Hives Home Medications Medication Instructions Recorded Confirmed Last Taken Type NIFEdipine XL [Procardia Xl] 30 mg PO QDAY #30 tablet 03/21/20 04/26/20 Unknown Rx Active Medications Acetaminophen (Acetaminophen 500 Mg Tab) 1,000 mg PO PREOP BRADY Gabapentin (Gabapentin 300 Mg Cap) 300 mg PO PREOP NR Stop: 05/02/20 23:59 Lactated Ringer's (Lactated Ringers) 1,000 mls @ 100 mls/hr IV DIRECT BRADY Stop: 05/02/20 23:59 Midazolam HCl (Midazolam 2 Mg/2 Ml Inj) 2 mg IV PREOP NR Stop: 05/02/20 23:59 - Physical exam General appearance: no acute distress Integumentary: no rash HEENT: Atraumatic Lungs: Clear to auscultation Breasts: deferred Heart: Regular rate Gastrointestinal: normal Female Genitourinary: deferred Rectal Exam: deferred Extremities: no ischemia - Brief post op/procedure progress note Date of procedure: 05/02/20 Pre-op diagnosis: Unwanted fertility Post-op diagnosis: same Procedure: Laparoscopy Bilateral salpingectomy Anesthesia: LISETTEA Surgeon: HALLEY FERRO Estimated blood loss: minimal Pathology: list (Bilateral fallopian tubes) Specimen disposition: to lab Condition: stable - Hospital course Hospital course: The patient was admitted the day of surgery and underwent a bilateral salpingectomy. Please see operative note for details of surgery. Her postoperative course is uneventful. - Disposition Condition at discharge: Good Disposition: DC-01 TO HOME OR SELFCARE - Discharge Diagnoses (1) Unwanted fertility Status: Acute Short Stay Discharge Plan Activity: other (Pelvic rest for 1 week) Diet: regular Additional Instructions: Follow-up is not required Follow-up as needed Prescriptions: HYDROcodone/APAP 5-325 [[place] 5/325] 1 each PO Q6HR PRN #15 tablet PRN Reason: Pain
[~2020-05-02 10:56] MED LIST: ACETAMINOPHEN 500 MG TAB PO SCH; GABAPENTIN 300 MG CAP PO NR; LACTATED RINGERS 1,000 ML IV SCH; MIDAZOLAM 2 MG/2 ML INJ IV NR
[2020-05-02] MEDS ORDERED: HYDROmorphone 1 MG/1 ML INJ IV PRN (11:47)
[2020-05-02] MEDS ORDERED: ONDANSETRON 4 MG/2 ML INJ IV PRN (11:47)
--- NOTE | 2020-05-02 11:47 | Anesthesia Consultation ---
Anesthesia Consult and Med Hx Date of service: 05/02/20 - Airway Anesthetic Teeth Evaluation: Good ROM Head & Neck: Adequate Mental/Hyoid Distance: Adequate Mallampati Class: Class II Intubation Access Assessment: Probably Good - Pre-Operative Health Status ASA Pre-Surgery Classification: ASA2 Proposed Anesthetic Plan: General - Pulmonary Hx Smoking: Yes Hx Respiratory Symptoms: No - Cardiovascular System Hx Hypertension: Yes (took nifedipine last night) - Central Nervous System CVA: No - Endocrine Hx Renal Disease: No Hx Liver Disease: No Hx Insulin Dependent Diabetes: No Hx Non-Insulin Dependent Diabetes: No Hx Thyroid Disease: No - Additional Comments Anesthesia Medical History Comments: No hx anesthetic complications.
--- NOTE | 2020-05-02 11:47 | Anesthesia Day of Surgery ---
Anesthesia Day of Surgery - Day of Surgery Patient Examined: Yes Patient H&P Reviewed: Yes Patient is NPO: Yes
[2020-05-02] MEDS ORDERED: fentaNYL 100 MCG/2 ML INJ ONE ×2 (11:54→13:28)
[2020-05-02] MEDS ORDERED: ONDANSETRON 4 MG/2 ML INJ ONE (11:54)
[2020-05-02] MEDS ORDERED: propofoL 200 MG/20 ML VIAL IV ONE (11:54)
[2020-05-02] MEDS ORDERED: ROCURONIUM 50 MG/5 ML INJ IV ONE (11:54)
[2020-05-02] MEDS ORDERED: BUPIVACAINE/PF (0.5%) 5 MG/1 ML 30 ML VIAL INFILTRATI ONE ×4 (11:54→13:14)
[2020-05-02] MEDS ORDERED: dexAMETHasone 20 MG/5 ML VIAL ONE (11:54)
[2020-05-02] MEDS ORDERED: LIDOCAINE PF 100 MG/5 ML (CARDIAC SYRINGE) IV ONE (11:54)
[2020-05-02] MEDS ORDERED: SODIUM CHLORIDE 0.9% IRR 1,500 ML BOTTLE IR ONE ×2 (12:13→13:14)
[2020-05-02] MEDS ORDERED: PHENYLEPHRINE 10 MG/1 ML INJ SDV ONE (13:21)
[2020-05-02] MEDS ORDERED: GLYCOPYRROLATE 0.4 MG/2 ML INJ ONE (13:21)
--- NOTE | 2020-05-02 13:34 | Operative Report ---
Operative Report Operative Report: Date of surgery: May 02, 2020 Preoperative diagnosis: Unwanted fertility Postoperative diagnosis: Same as above Procedure: Laparoscopy; Bilateral salpingectomy Surgeon: Diane Lai M.D. Anesthesia: General endotracheal anesthesia Estimated blood loss: Minimal Pathology: Bilateral fallopian tubes Findings: Normal uterus tubes and ovaries Indication: 35-year-old -0-1-6 with unwanted fertility. Procedure: The patient was taken to the operating room and given general endotracheal anesthesia without complication. The patient is prepped and draped in a normal sterile fashion. A bivalve speculum was placed in the patient's vagina and a single-tooth tenaculum was placed on the anterior lip of the cervix .A uterine acorn manipulator was placed, and the bivalve speculum was then removed. Attention was then turned to the patient's abdomen where a 5 mm infraumbilical skin incision was then made. A Veress needle was placed and peritoneal entry was verified water-filled syringe. Insufflation of the peritoneal cavity was performed with CO2 gas. A 5 mm trocar was placed and the laparoscope was then inserted. The patient was then placed in Trendelenburg. A 7 mm suprapubic skin incision was then made. Under direct visualization a 7 mm trocar was then placed. An additional 5 mm left lateral trocar was also placed. General survey of the patient's abdomen revealed normal uterus tubes and ovaries. The fallopian tube was then followed out to the fimbriated end. The LigaSure device was used in order to coagulate and transect the mesosalpinx. The fallopian tube was excised from the adnexa. The fallopian tube was removed through the 7 mm trocar. This was performed on the contralateral side as well. The trocars were then removed. The pneumoperitoneum was then released. The 5 mm trocar laparoscope was then removed. The skin incisions were then closed wit h 4-0 Monocryl. The incisions were injected with quarter percent Marcaine. Dressings were applied to the incision. The vaginal instruments were then removed atraumatically. Then successfully extubated and taken to the recovery room. All sponge laps and needle counts were correct x2.
--- NOTE | 2020-05-02 15:19 | Post Anesthesia Evaluation ---
- Post Anesthesia Evaluation Patient Participated: Yes Airway Patent: Yes Stable Respiratory Function: Yes Nausea/Vomiting: No Temp > 96.8F: Yes Pain Manageable: Yes Adequeate Hydration: Yes Anesthesia Complications: No
[2020-05-02 16:26] VITALS: BP 126/79
== END 2020-05-02 10:57 | disposition home or self-care (01) ==
LOC: OR 10:56
PROVIDERS: ATTEND Obstetrics & Gynecology
DX: Z30.2 Encounter for sterilization (principal); D50.9 Iron deficiency anemia, unspecified; G43.909 Migraine, unspecified, not intractable, without status migrainosus; F17.210 Nicotine dependence, cigarettes, uncomplicated; I10 Essential (primary) hypertension; Z88.8 Allergy status to other drugs, medicaments and biological substances; Z72.89 Other problems related to lifestyle; Z80.3 Family history of malignant neoplasm of breast; Z82.49 Family history of ischemic heart disease and other diseases of the circulatory system
CPT/HCPCS: 58670; 81025; 88302; J1100; J2001; J2250; J2370; J2405; J2704; J3010; J7120

== ENCOUNTER 2021-02-24 05:00 | Emergency (ER) | payer SELFPAY ==
[2021-02-24 05:43] VITALS: BP 93/60
[2021-02-24] MEDS ORDERED: ONDANSETRON 4 MG/2 ML INJ IV ONE (06:54)
[2021-02-24] MEDS ORDERED: MORPHINE 4 MG/1 ML INJ IV ONE (06:54)
[2021-02-24] MEDS ORDERED: MORPHINE 4 MG/1 ML INJ IM ONE (06:55)
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
== END 2021-02-24 07:20 | disposition left against medical advice (07) ==
LOC: ED 05:00
DX: M54.50 Low back pain, unspecified (principal); V89.2XXA Person injured in unspecified motor-vehicle accident, traffic, initial encounter; Y93.89 Activity, other specified; Y92.89 Other specified places as the place of occurrence of the external cause; Y99.8 Other external cause status
CPT/HCPCS: 96372; 96374; 99283; J2270; J2405

== ENCOUNTER 2021-02-28 21:27 | Emergency (ER) | payer SELFPAY ==
[2021-02-28 21:55] VITALS: BP 151/110
== END 2021-02-28 21:55 | disposition left against medical advice (07) ==
LOC: ED 21:27
DX: K92.0 Hematemesis (principal); Z53.21 Procedure and treatment not carried out due to patient leaving prior to being seen by health care provider

== ENCOUNTER 2021-03-06 17:09 | Emergency (ER) | payer MEDICAID, OTHER ==
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
[2021-03-06 20:14] VITALS: BP 164/92
== END 2021-03-06 20:04 | disposition home or self-care (01) ==
LOC: ED 17:09
DX: S30.1XXD Contusion of abdominal wall, subsequent encounter (principal); I10 Essential (primary) hypertension; F17.200 Nicotine dependence, unspecified, uncomplicated; Z91.09 Other allergy status, other than to drugs and biological substances; Z79.899 Other long term (current) drug therapy; X58.XXXD Exposure to other specified factors, subsequent encounter
CPT/HCPCS: 99282